=== PATIENT | female | born 1960 | race Two or more races ===

== ENCOUNTER 2022-04-23 10:35 | Outpatient (CLI) | payer OTHER | END 2022-04-23 10:36 | disposition home or self-care (01) | LOC: SONOGRAMA 10:35 | PROVIDERS: ATTEND Pathology Anatomic Pathology | DX: E04.1 Nontoxic single thyroid nodule (principal) ==

== ENCOUNTER 2023-09-16 10:15 | Inpatient (IN) | payer OTHER ==
[~2023-09-16] VITALS: Ht 152.4 cm; Wt 86.2 kg
[2023-09-16] MEDS ORDERED: LOSARTAN-HCTZ1 EAC2 PO (12:34)
[2023-09-16] MEDS ORDERED: NORVASC5 MG PO (12:35)
[2023-09-16] MEDS ORDERED: SYNTHROID75 MCG PO (12:35)
[2023-09-16] MEDS ORDERED: TOPROL XL25 M1 PO (12:36)
[2023-09-16] MEDS ORDERED: GRALISE600 MG PO (12:37)
[2023-09-16] MEDS ORDERED: MYCOPHENOLATE500 MG PO (12:37)
[2023-09-16] MEDS ORDERED: IROSPAN 24/6 T1 EACH PO (12:38)
[2023-09-16] MEDS ORDERED: PROTONIX40 MG PO (12:38)
[2023-09-30] MEDS ORDERED: BUPIVACAINE HCL 250MG/50ML VIAL IJ SCH (08:15)
[2023-09-30] MEDS ORDERED: LIDOCAINE HCL/EPINEPHRINE 10 ML VIAL IJ SCH ×2 (08:15→09:15)
[2023-09-30] MEDS ORDERED: ERTAPENEM SODIUM 1,000 MG VIAL IV SCH (08:15)
[2023-09-30] MEDS ORDERED: BUPIVACAINE HCL/PF 0.5% 1ML IJ SCH (09:00)
[2023-09-30] MEDS ORDERED: OxyCODONE HCL/APAP UD (PERCOCET) PO PRN (15:30)
[2023-09-30] MEDS ORDERED: MORPHINE SULFATE 4 MG/ML VIAL IV PRN (15:30)
[2023-09-30] MEDS ORDERED: OxyCODONE HCL 5 MG TABLET (ROXICODONE) PO PRN (15:30)
[2023-09-30] MEDS ORDERED: RINGERS SOLUTION,LACTATED 1,000 ML IV SCH (15:30)
[2023-09-30] MEDS ORDERED: ONDANSETRON HCL 2 MG/ML VIAL IV PRN (15:30)
[2023-09-30 16:28] LABS: HEMATOCRIT 31.9 % (36.0-45.00); HEMOGLOBIN 10.5 g/dL (12.0-15.00); MEAN CELL VOLUME 89.5 fL (80.00-100.00); MEAN CORPUSCULAR HEMOGLOBIN 29.4 pg (27.00-32.0); MEAN CORPUSCULAR HGB CONC 32.8 g/dl (32.0-36.0); PLATELET COUNT 335 K/uL (150-450); RED BLOOD COUNT 3.56 M/uL (4.00-6.00); RED CELL DISTRIBUTION WIDTH 13.2 % (11.5-14.5)
[2023-09-30 16:48] LABS: ALBUMIN 3.4 gm/dL (3.4-5.0); CALCIUM 8.5 mg/dL (8.5-10.1); CREATININE SERUM 0.55 mg/dL (0.55-1.02); GFR 112.37; MAGNESIUM 1.9 mg/dL (1.8-2.4); PHOSPHOROUS 3.2 mg/dL (2.5-4.9); POTASSIUM 3.16 mEq/L (3.5-5.1)
[2023-09-30] MEDS ORDERED: SIMETHICONE 125 MG CAPSULE PO SCH (17:00)
[2023-09-30] MEDS ORDERED: GABAPENTIN 300 MG CAPSULE PO SCH (17:00)
[2023-09-30] MEDS ORDERED: POLYETHYLENE GLYCOL 3350 17 GM BLIST.PACK PO SCH (17:00)
[2023-09-30] MEDS ORDERED: MAGNESIUM CHLORIDE 70 MG TABLET.DR PO SCH (18:00)
[2023-09-30] MEDS ORDERED: FAMOTIDINE/PF 20 MG/2 ML VIAL IV SCH (21:00)
[2023-10-01] MEDS ORDERED: LEVOTHYROXINE SODIUM 75 MCG TABLET PO SCH (06:00)
[2023-10-01 06:48] LABS: HEMATOCRIT 28.5 % (36.0-45.00); HEMOGLOBIN 9.8 g/dL (12.0-15.00); MEAN CELL VOLUME 87.6 fL (80.00-100.00); MEAN CORPUSCULAR HEMOGLOBIN 30.2 pg (27.00-32.0); MEAN CORPUSCULAR HGB CONC 34.5 g/dl (32.0-36.0); PLATELET COUNT 296 K/uL (150-450); RED BLOOD COUNT 3.25 M/uL (4.00-6.00); RED CELL DISTRIBUTION WIDTH 12.9 % (11.5-14.5)
[2023-10-01 07:05] LABS: ALBUMIN 2.7 gm/dL (3.4-5.0); CALCIUM 7.6 mg/dL (8.5-10.1); CREATININE SERUM 0.39 mg/dL (0.55-1.02); GFR 167.08; PHOSPHOROUS 2.3 mg/dL (2.5-4.9); POTASSIUM 3.22 mEq/L (3.5-5.1)
[2023-10-01] MEDS ORDERED: AMLODIPINE BESYLATE 5 MG TABLET PO SCH (09:00)
[2023-10-01] MEDS ORDERED: LOSARTAN/HYDROCHLOROTHIAZIDE 1 TAB TABLET PO SCH (09:00)
[2023-10-01] MEDS ORDERED: IRON FUM,PS/FOLIC ACID/VITC/B3 1 CAP CAPSULE PO SCH (09:00)
[2023-10-01] MEDS ORDERED: METOPROLOL SUCCINATE 25 MG TAB.SR.24H PO SCH (09:00)
[2023-10-01] MEDS ORDERED: LACTOBACILLUS ACIDOPHILUS 1 CAP CAP PO SCH (09:00)
[2023-10-01] MEDS ORDERED: Cyanocobalamin/Mecobalamin 1 TAB.SL SL SCH (09:01)
[2023-10-01] MEDS ORDERED: POTASSIUM PHOS,M-BASIC-D-BASIC 15 MM in 0.9 % SODIUM CHLORIDE 250 ML IV ONE (12:00)
[2023-10-01] MEDS ORDERED: ENOXAPARIN SODIUM 40 MG/0.4 ML SYRINGE SUBCUTANEO SCH (17:00)
[2023-10-01] MEDS ORDERED: FAMOtidine 20 MG TABLET PO SCH (17:00)
[2023-10-02 06:29] LABS: HEMATOCRIT 29.5 % (36.0-45.00); HEMOGLOBIN 9.9 g/dL (12.0-15.00); MEAN CELL VOLUME 89.4 fL (80.00-100.00); MEAN CORPUSCULAR HEMOGLOBIN 29.9 pg (27.00-32.0); MEAN CORPUSCULAR HGB CONC 33.4 g/dl (32.0-36.0); PLATELET COUNT 270 K/uL (150-450); RED CELL DISTRIBUTION WIDTH 13.3 % (11.5-14.5)
[2023-10-02 07:15] LABS: ALBUMIN 2.7 gm/dL (3.4-5.0); CALCIUM 7.7 mg/dL (8.5-10.1); CREATININE SERUM 0.41 mg/dL (0.55-1.02); GFR 157.71; MAGNESIUM 2.2 mg/dL (1.8-2.4); POTASSIUM 3.27 mEq/L (3.5-5.1)
[2023-10-02 08:09] LABS: PHOSPHOROUS 1.4 mg/dL (2.5-4.9)
[2023-10-02] MEDS ORDERED: PYRIDOXINE HCL 100 MG TABLET PO SCH (09:00)
[2023-10-02] MEDS ORDERED: POTASSIUM PHOS,M-BASIC-D-BASIC 15 MM in 0.9 % SODIUM CHLORIDE 250 ML IV ONE (11:45)
[2023-10-02] MEDS ORDERED: BISMUTH SUBSALICYLATE 524 MG/30 ML BLIST.PACK PO ONE (12:45)
[2023-10-02] MEDS ORDERED: NAPH,MB-DB/K PH,MBDB 1 PKT PACKET PO SCH (13:00)
[2023-10-02] MEDS ORDERED: METOPROLOL SUCCINATE 25 MG TAB.SR.24H PO SCH (17:00)
[2023-10-03 07:26] LABS: HEMATOCRIT 29.3 % (36.0-45.00); HEMOGLOBIN 9.8 g/dL (12.0-15.00); MEAN CELL VOLUME 88.8 fL (80.00-100.00); MEAN CORPUSCULAR HEMOGLOBIN 29.9 pg (27.00-32.0); MEAN CORPUSCULAR HGB CONC 33.7 g/dl (32.0-36.0); PLATELET COUNT 279 K/uL (150-450); RED BLOOD COUNT 3.29 M/uL (4.00-6.00)
[2023-10-03 08:06] LABS: ALBUMIN 2.7 gm/dL (3.4-5.0); CREATININE SERUM 0.47 mg/dL (0.55-1.02); GFR 134.71; MAGNESIUM 2.3 mg/dL (1.8-2.4); POTASSIUM 3.07 mEq/L (3.5-5.1)
[2023-10-03 08:23] LABS: PHOSPHOROUS 1.8 mg/dL (2.5-4.9)
[2023-10-03] MEDS ORDERED: NAPH,MB-DB/K PH,MBDB 1 PKT PACKET PO SCH (09:00)
[2023-10-03] MEDS ORDERED: NAPH,MB-DB/K PH,MBDB 1 PKT PACKET PO STA (18:44)
[2023-10-03] MEDS ORDERED: POTASSIUM PHOS,M-BASIC-D-BASIC 15 MM in 0.9 % SODIUM CHLORIDE 250 ML IV ONE (20:00)
[2023-10-04 06:57] LABS: HEMATOCRIT 29.4 % (36.0-45.00); MEAN CELL VOLUME 87.9 fL (80.00-100.00); MEAN CORPUSCULAR HEMOGLOBIN 29.7 pg (27.00-32.0); MEAN CORPUSCULAR HGB CONC 33.8 g/dl (32.0-36.0); PLATELET COUNT 305 K/uL (150-450); RED BLOOD COUNT 3.35 M/uL (4.00-6.00); RED CELL DISTRIBUTION WIDTH 12.9 % (11.5-14.5)
[2023-10-04 07:24] LABS: ALBUMIN 2.9 gm/dL (3.4-5.0); CALCIUM 8.6 mg/dL (8.5-10.1); CREATININE SERUM 0.52 mg/dL (0.55-1.02); GFR 119.88; MAGNESIUM 2.6 mg/dL (1.8-2.4); PHOSPHOROUS 3.6 mg/dL (2.5-4.9); POTASSIUM 4.01 mEq/L (3.5-5.1)
[2023-10-04] MEDS ORDERED: NAPH,MB-DB/K PH,MBDB 1 PKT PACKET PO SCH (09:00)
[2023-10-04] MEDS ORDERED: CHOLESTYRAMINE/ASPARTAME LIGHT 4 G/PKT PACKET PO STA (12:30)
[2023-10-05 09:00] LABS: ALBUMIN 2.9 gm/dL (3.4-5.0); CALCIUM 8.6 mg/dL (8.5-10.1); CREATININE SERUM 0.49 mg/dL (0.55-1.02); GFR 128.39; MAGNESIUM 1.8 mg/dL (1.8-2.4); PHOSPHOROUS 3.9 mg/dL (2.5-4.9); POTASSIUM 3.81 mEq/L (3.5-5.1)
[2023-10-05] MEDS ORDERED: NAPH,MB-DB/K PH,MBDB 1 PKT PACKET PO SCH (09:00)
== END 2023-10-06 08:03 | disposition home or self-care (01) | DRG 331 ==
LOC: SURG 09-23 10:15 → O/R 09-30 05:13 → SURG 09-30 09:00 → SURH 09-30 13:34
PROVIDERS: ADMIT Colon & Rectal Surgery; ATTEND Colon & Rectal Surgery
PROC: 0DTP4ZZ Resection of Rectum, Percutaneous Endoscopic Approach (ICD-10-PCS; 2023-09-30)
PROC: 0DJD8ZZ Inspection of Lower Intestinal Tract, Via Natural or Artificial Opening Endoscopic (ICD-10-PCS; 2023-09-30)
PROC: 0DTNFZZ Resection of Sigmoid Colon, Via Natural or Artificial Opening With Percutaneous Endoscopic Assistance (ICD-10-PCS; principal; 2023-09-30 09:00)
DX: K57.32 Diverticulitis of large intestine without perforation or abscess without bleeding (principal); R10.32 Left lower quadrant pain